=== PATIENT | female | born 1985 | race Caucasian/White ===

== ENCOUNTER 2017-04-12 17:50 | Emergency (ER) | payer MEDICARE, MEDICAID ==
[2011-08-19 07:36] VITALS: BMI 30.9
[2017-04-12 18:17] LABS: BASOPHILS 0.2 % (0-2); EOSINOPHILS 0.8 % (0-7); HEMATOCRIT 41.1 % (36.0-48.0); HEMOGLOBIN 14.3 g/dL (12-16); IMMATURE GRANULOCYTES 0.3 % (0-5); LYMPHOCYTES 29.6 % (15-50); MCH 30.6 pg (26.0-34.0); MCHC 34.8 g/dL (31.0-37.0); MCV 87.8 fL (80.0-100.0); MEAN PLATELET VOLUME 9.8 fL (7.4-10.4); MONOCYTES 4.7 % (2-11); NEUTROPHILS 64.4 % (40-80); PLATELET COUNT 305 10x3/uL (130-400); RBC 4.68 10x6/uL (4.00-5.40); RDW 13.3 % (11.5-14.5); WBC 11.6 10x3/uL (4.8-10.8)
[2017-04-12 18:32] LABS: APPEARANCE SLT CLOUDY (CLEAR); COLOR YELLOW (YELLOW)
[2017-04-12 18:33] LABS: BILIRUBIN NEGATIVE (NEGATIVE); GLUCOSE NEGATIVE (NEGATIVE); KETONE SMALL mg/dL (NEGATIVE); NITRITE NEGATIVE (NEGATIVE); PROTEIN 1+ mg/dL (NEGATIVE); SPECIFIC GRAVITY 1.025 (1.005-1.020); UROBILINOGEN NORMAL (NORMAL)
[2017-04-12 18:36] LABS: BACTERIA FEW /hpf (NONE SEEN); EPITHELIAL CELLS 0-5 /hpf (0-5); GRANULAR CAST OCC /lpf (NONE SEEN); RED CELLS - URINE 0-5 /hpf (0-5)
[2017-04-12 18:38] LABS: ALBUMIN 4.5 g/dL (3.4-5.0); ALKALINE PHOSPHATASE 110 U/L (46-116); ALT (SGPT) 70 U/L (10-68); BILIRUBIN - TOTAL 0.31 mg/dL (0.2-1.3); CALC OSMOLALITY 278 mosm/kg (275-300); CALCIUM 10.7 mg/dL (8.5-10.1); CARBON DIOXIDE 21.9 mmol/L (21.0-32.0); CHLORIDE - SERUM 101 mmol/L (98-107); CREATININE - SERUM 0.7 mg/dL (0.6-1.3); GLUCOSE 187 mg/dL (74-106); POTASSIUM - SERUM 3.7 mmol/L (3.5-5.1); PROTEIN - SERUM 8.6 g/dL (6.4-8.2); SODIUM 137 mmol/L (136-145); UREA NITROGEN 12 mg/dL (7-18); eGFR NON AFRICAN AMERICAN > 90 mL/min (90-120)
== END 2017-04-12 20:28 | disposition home or self-care (01) ==
LOC: D.ER 17:50
PROVIDERS: Emergency Medicine
DX: R19.7 Diarrhea, unspecified (principal); E86.0 Dehydration; K52.9 Noninfective gastroenteritis and colitis, unspecified; N39.0 Urinary tract infection, site not specified; E11.65 Type 2 diabetes mellitus with hyperglycemia; Z79.4 Long term (current) use of insulin

== ENCOUNTER 2017-05-16 10:50 | Emergency (ER) | payer MEDICARE, MEDICAID ==
[2011-08-19 07:36] VITALS: BMI 30.9
[2017-05-16 13:03] LABS: BASOPHILS 0.1 % (0-2); EOSINOPHILS 1.7 % (0-7); HEMATOCRIT 39.2 % (36.0-48.0); HEMOGLOBIN 13.7 g/dL (12-16); IMMATURE GRANULOCYTES 0.3 % (0-5); LYMPHOCYTES 38.3 % (15-50); MCHC 34.9 g/dL (31.0-37.0); MCV 88.7 fL (80.0-100.0); MEAN PLATELET VOLUME 9.8 fL (7.4-10.4); MONOCYTES 3.9 % (2-11); NEUTROPHILS 55.7 % (40-80); PLATELET COUNT 266 10x3/uL (130-400); RBC 4.42 10x6/uL (4.00-5.40); WBC 10.9 10x3/uL (4.8-10.8)
[2017-05-16 13:16] LABS: ALBUMIN 3.8 g/dL (3.4-5.0); ALKALINE PHOSPHATASE 105 U/L (46-116); ALT (SGPT) 45 U/L (10-68); CALC OSMOLALITY 278 mosm/kg (275-300); CARBON DIOXIDE 22.4 mmol/L (21.0-32.0); CHLORIDE - SERUM 97 mmol/L (98-107); CREATININE - SERUM 0.7 mg/dL (0.6-1.3); GLUCOSE 334 mg/dL (74-106); KETONE - SERUM NEGATIVE (NEGATIVE); POTASSIUM - SERUM 3.8 mmol/L (3.5-5.1); PROTEIN - SERUM 7.9 g/dL (6.4-8.2); SODIUM 134 mmol/L (136-145); UREA NITROGEN 8 mg/dL (7-18); eGFR NON AFRICAN AMERICAN > 90 mL/min (90-120)
== END 2017-05-16 16:34 | disposition home or self-care (01) ==
LOC: D.ER 10:50
PROVIDERS: Family Medicine
DX: E11.65 Type 2 diabetes mellitus with hyperglycemia (principal); Z79.4 Long term (current) use of insulin; M79.605 Pain in left leg; M79.604 Pain in right leg; F17.200 Nicotine dependence, unspecified, uncomplicated

== ENCOUNTER 2019-05-06 13:22 | Emergency (ER) | payer MEDICARE, MEDICAID ==
[~2019-05-06] VITALS: Ht 162.6 cm; Wt 85.0 kg
[2019-05-06 14:30] VITALS: BP 139/73; Ht 162.6 cm; Wt 85.0 kg
[2019-05-06] MEDS ORDERED: NEURONTIN 300300 MG PO (14:33)
[2019-05-06] MEDS ORDERED: FUROSEMIDE20 MG PO (14:34)
[2019-05-06] MEDS ORDERED: NOVOLOG100 UNIT/1 SC (14:34)
[2019-05-06] MEDS ORDERED: VOLTAREN75 MG PO (14:35)
[2019-05-06] MEDS ORDERED: ZOVIRAX200 MG PO (14:36)
[2019-05-06] MEDS ORDERED: MACRODANTIN100 MG PO (14:36)
[2019-05-06] MEDS ORDERED: LINZESS145 MCG PO (14:36)
[2019-05-06] MEDS ORDERED: ULTRAM50 MG PO (14:37)
[2019-05-06] MEDS ORDERED: TRAZODONE HCL150 MG PO (14:37)
[2019-05-06] MEDS ORDERED: PROVERA10 MG PO (14:37)
[2019-05-06] MEDS ORDERED: OMEPRAZOLE20 M1 PO (14:38)
[2019-05-06] MEDS ORDERED: IMITREX100 MG PO (14:38)
[2019-05-06] MEDS ORDERED: BENTYL10 MG PO (14:38)
[2019-05-06] MEDS ORDERED: DOLOBID500 MG PO (14:38)
[2019-05-06] MEDS ORDERED: ONDANSETRON ODT8 MG PO (14:39)
[2019-05-06] MEDS ORDERED: FENOFIBRATE160 MG PO (14:39)
[2019-05-06] MEDS ORDERED: SALAGEN5 MG PO (14:39)
[2019-05-06] MEDS ORDERED: MOBIC7.5 MG PO (16:42)
== END 2019-05-06 17:33 | disposition home or self-care (01) ==
LOC: D.ER 13:22
DX: M79.642 Pain in left hand (principal); S69.92XA Unspecified injury of left wrist, hand and finger(s), initial encounter; W22.8XXA Striking against or struck by other objects, initial encounter; Y93.9 Activity, unspecified; Y92.9 Unspecified place or not applicable; J45.909 Unspecified asthma, uncomplicated; E11.9 Type 2 diabetes mellitus without complications; M35.00 Sjogren syndrome, unspecified

== ENCOUNTER 2020-10-03 15:05 | Emergency (ER) | payer MEDICARE, MEDICAID ==
[~2020-10-03] VITALS: Ht 162.6 cm; Wt 81.8 kg
[~2020-10-03 15:05] MED LIST: BASAGLAR K100 UNIT/1 SC; BENTYL10 MG PO; DOLOBID500 MG PO; FENOFIBRATE160 MG PO; FUROSEMIDE20 MG PO; IMITREX100 MG PO; LINZESS145 MCG PO; MACRODANTIN100 MG PO; MOBIC7.5 MG PO; NEURONTIN 300300 MG PO; NOVOLOG100 UNIT/1 SC; OMEPRAZOLE20 M1 PO; ONDANSETRON ODT8 MG PO; PROTONIX40 MG PO; PROVERA10 MG PO; SALAGEN5 MG PO; TRAZODONE HCL150 MG PO; ULTRAM50 MG PO; VICTOZA0.6 MG/0.1 SQ; VOLTAREN75 MG PO; ZOVIRAX200 MG PO
[2020-10-03 15:16] VITALS: BP 140/85; Ht 162.6 cm; Wt 81.8 kg
[2020-10-03 17:01] LABS: BASOPHILS 0.5 % (0-2); CALC OSMOLALITY 280 mosm/kg (275-300); CALCIUM 8.7 mg/dL (8.5-10.1); CARBON DIOXIDE 23.4 mmol/L (21.0-32.0); CHLORIDE - SERUM 100 mmol/L (98-107); CREATININE - SERUM 0.8 mg/dL (0.6-1.3); EOSINOPHILS 0.3 % (0-7); HEMATOCRIT 39.2 % (36.0-48.0); HEMOGLOBIN 13.2 g/dL (12-16); LYMPHOCYTES 22.1 % (15-50); MCH 29.5 pg (26.0-34.0); MCHC 33.6 g/dL (31.0-37.0); MCV 87.7 fL (80.0-100.0); MONOCYTES 8.9 % (2-11); NEUTROPHILS 68.2 % (40-80); PLATELET COUNT 244 10x3/uL (130-400); POTASSIUM - SERUM 3.5 mmol/L (3.5-5.1); RBC 4.47 10x6/uL (4.00-5.40); RDW 14.1 % (11.5-14.5); SODIUM 136 mmol/L (136-145); UREA NITROGEN 4 mg/dL (7-18); WBC 7.2 10x3/uL (4.8-10.8); eGFR NON AFRICAN AMERICAN 86 mL/min (90-120)
[2020-10-03 17:02] LABS: GLUCOSE 310 mg/dL (74-106)
[2020-10-03 17:08] LABS: ALBUMIN 3.7 g/dL (3.4-5.0); ALKALINE PHOSPHATASE 111 U/L (30-120); ALT (SGPT) 69 U/L (10-68); PROTEIN - SERUM 7.6 g/dL (6.4-8.2)
[2020-10-03] MEDS ORDERED: ZPAK PO ×2 (17:13→17:16)
[2020-10-03] MEDS ORDERED: DECADRON4 MG PO ×2 (17:13→17:16)
[2020-10-03 17:17] LABS: BACTERIA FEW HPF (<MOD); BILIRUBIN NEGATIVE (NEGATIVE); KETONE 1+ mg/dL (< 1+); NITRITE NEGATIVE (NEGATIVE); PH 5.5 (5.0-8.0); SQUAMOUS EPITHELIAL 5 HPF (0-4); UROBILINOGEN NORMAL mg/dL (< 2); WHITE CELLS - URINE 2 HPF (0-4)
== END 2020-10-03 17:46 | disposition home or self-care (01) ==
LOC: D.ER 15:05
PROVIDERS: Family Medicine
DX: R06.02 Shortness of breath (principal); E11.9 Type 2 diabetes mellitus without complications; J45.909 Unspecified asthma, uncomplicated